=== PATIENT | female | born 1975 | race Caucasian/White ===

== ENCOUNTER 2018-03-20 20:32 | Emergency (ER) | payer OTHER ==
[~2018-03-20] VITALS: Ht 157.5 cm; Wt 74.8 kg
[~2018-03-20 20:32] MED LIST: CARAFATE1 GM/10 ML PO; HUMALOG100 UNIT/1; KEFLEX250 MG; LANTUS100 UNIT/M; NORCO 5-325 TA1 EACH PO; PERCOCET 5-3251 EACH PO; PROTONIX 20 MG20 M1; ROBAXIN500 MG PO; SEROQUEL 50 MG50 MG PO; TRAZODONE 150150 M1 PO; VENTOLIN HFA 1818 GM; ZOLOFT 50 MG TA50 M1; ZOLOFT100 MG PO; ZPAK PO; ZYRTEC10 M2
[2018-03-20] MEDS ORDERED: BRINTELLIX10 MG PO (21:10)
[2018-03-20 21:20] LABS: URINE BILIRUBIN NEGATIVE (Negative); URINE BLOOD 3+ (Negative); URINE CLARITY CLEAR; URINE COLOR YELLOW; URINE GLUCOSE-RANDOM 3+ (Negative); URINE KETONES NEGATIVE (Negative); URINE LEUKOCYTES-REFLEX NEGATIVE (Negative); URINE NITRITE-REFLEX NEGATIVE (Negative); URINE PROTEIN NEGATIVE (Negative); URINE SPECIFIC GRAVITY 1.025 (1.005-1.030); URINE UROBILINOGEN 0.2 E.U./dl (0.2-1.0)
[2018-03-20 21:47] LABS: MUCUS None Seen strn/LPF (None Seen); SQUAMOUS >10 Many /LPF (0-3)
[2018-03-20 21:54] LABS: CASTS None Seen /LPF (None Seen); URINE RBC 3-10 Few /HPF (0-2); URINE WBC-REFLEX 0-5 Rare /HPF (0-5)
[2018-03-20 21:55] LABS: CRYSTALS None Seen /LPF (None Seen)
[2018-03-20] MEDS ORDERED: TRIAMCINOLONE A80 G2 TOP (22:34)
[2018-03-20] MEDS ORDERED: DIFLUCAN150 MG PO (22:34)
[2018-03-20] MEDS ORDERED: TRAMADOL 50 MG50 MG PO (22:39)
[2018-03-20 22:58] VITALS: BP 142/92
== END 2018-03-20 22:58 | disposition home or self-care (01) ==
LOC: M.ERS 20:32
PROVIDERS: Nurse Practitioner Family
DX: L90.0 Lichen sclerosus et atrophicus (principal); N76.0 Acute vaginitis; E11.9 Type 2 diabetes mellitus without complications; J45.909 Unspecified asthma, uncomplicated; K21.9 Gastro-esophageal reflux disease without esophagitis; G47.00 Insomnia, unspecified; F32.9 Major depressive disorder, single episode, unspecified; Z90.710 Acquired absence of both cervix and uterus; Z98.84 Bariatric surgery status; F17.200 Nicotine dependence, unspecified, uncomplicated; Z88.2 Allergy status to sulfonamides; Z88.1 Allergy status to other antibiotic agents; Z88.5 Allergy status to narcotic agent; Z88.8 Allergy status to other drugs, medicaments and biological substances

== ENCOUNTER 2019-08-19 11:34 | Emergency (ER) | payer MEDICAID ==
[~2019-08-19] VITALS: Ht 152.4 cm; Wt 65.4 kg
[~2019-08-19 11:34] MED LIST changes: +BRINTELLIX10 MG PO; +DIFLUCAN150 MG PO; +TRAMADOL 50 MG50 MG PO; +TRIAMCINOLONE A80 G2 TOP
[2019-08-19] MEDS ORDERED: GLIPIZIDE 10 MG10 MG PO (11:58)
[2019-08-19 12:12] LABS: URINE BILIRUBIN NEGATIVE (Negative); URINE BLOOD TRACE (Negative); URINE CLARITY CLEAR; URINE COLOR YELLOW; URINE GLUCOSE-RANDOM 3+ (Negative); URINE KETONES 1+ (Negative); URINE LEUKOCYTES-REFLEX NEGATIVE (Negative); URINE NITRITE-REFLEX NEGATIVE (Negative); URINE PROTEIN NEGATIVE (Negative); URINE UROBILINOGEN 0.2 E.U./dl (0.2-1.0)
[2019-08-19 12:16] LABS: INFLUENZA A ANTIGEN Negative (Negative); INFLUENZA B ANTIGEN Negative (Negative)
[2019-08-19 12:25] LABS: ABSOLUTE LYMPHOCYTES 1.5 thou/uL (0.8-5.3); ABSOLUTE MONOCYTES 0.4 thou/uL (0.0-1.2); ABSOLUTE NEUTROPHILS 4.1 thou/uL (1.6-8.1); BASOPHILS 0.6 %; EOSINOPHILS 0.5 %; HEMATOCRIT 41.6 % (37.0-47.0); HEMOGLOBIN 14.3 gm/dL (12.0-15.0); LYMPHOCYTES 24.7 %; MCH 29.8 pg (26.0-34.0); MCHC 34.3 g/dL (28.0-37.0); MONOCYTES 6.5 %; MPV 8.3 fl. (7.2-11.1); NUCLEATED RBCS 0 /100WBC; PLATELET COUNT* 192 thou/uL (150-400); POLYS 67.7 %; RBC 4.78 mil/uL (4.20-5.00); RDW-CV 12.7 % (10.5-14.5)
[2019-08-19 12:38] LABS: CALCIUM 8.9 mg/dL (8.5-10.1); CREATININE 0.9 mg/dL (0.6-1.3); POTASSIUM 3.6 mmol/L (3.5-5.1)
[2019-08-19 12:42] LABS: ALBUMIN 3.3 g/dL (3.4-5.0); TOTAL BILIRUBIN 0.7 mg/dL (<0.1-1.0); TOTAL PROTEIN 7.5 g/dL (6.4-8.2)
[2019-08-19] MEDS ORDERED: GLUCOTROL10 MG PO (14:17)
[2019-08-19 16:09] VITALS: BP 120/78
== END 2019-08-19 16:10 | disposition home or self-care (01) ==
LOC: M.ERS 11:34
PROVIDERS: Personal Emergency Response Attendant
DX: E11.65 Type 2 diabetes mellitus with hyperglycemia (principal); J06.9 Acute upper respiratory infection, unspecified; N80.9 Endometriosis, unspecified; J45.909 Unspecified asthma, uncomplicated; Z88.5 Allergy status to narcotic agent; Z88.2 Allergy status to sulfonamides; Z88.8 Allergy status to other drugs, medicaments and biological substances; Z88.6 Allergy status to analgesic agent; Z90.710 Acquired absence of both cervix and uterus